=== PATIENT | male | born 1945 | race Caucasian/White ===

== ENCOUNTER 2016-07-25 19:35 | Observation (INO) | payer OTHER, BC ==
[~2016-07-25] VITALS: Ht 162.6 cm; Wt 64.3 kg
--- NOTE | ~2016-07-25 | EKG ---
[address] [facility] [place] [address] ELECTROCARDIOGRAM REPORT Name: BOBBI MOSELEY Room #: 207-P [facility].#: [id number] Admission: 07/25/16 Attend Phys: Ashu Pollard MD, Discharge: Date of : 49 Report #: [id number] THIS REPORT FOR: //name// [facility] ED Test Date: 2016-07-25 Test Time: 19:38:33 Pat Name: BOBBI MOSELEY Department: Room: [facility] Gender: M [employer] Assistant: ALEXANDRE : 1945 Requested By: Edwar Dominguez Order Number: [id number] MD: Qamar Moreno Measurements Intervals [place] Rate: 60 P: 40 VA: 172 QRS: 25 QRSD: 91 T: 51 QT: 387 QTc: 387 Interpretive Statements Sinus rhythm Atrial premature complex No previous ECG available for comparison Electronically Signed On 07-26-2016 8:21:53 BUDGET ACCOUNTANT by Qamar Moreno [email or web address] <ELECTRONICALLY SIGNED> By: Qamar Moreno MD 07/26/16 0821 37 37 Qamar Moreno MD /ELIZABETH
--- NOTE | ~2016-07-25 | DSS ---
[facility] [place] [address] SHORT STAY SUMMARY Name: BOBBI MOSELEY Room #: 207-P [facility] Jada Sofia#: [id number] Admission: 07/25/16 Attend Phys: Ashu Pollard MD, Discharge: 07/26/16 Date of : 49 Report #: [id number] THIS REPORT FOR: //name// CC: Ashu Pollard Aston [place] DISCHARGE DIAGNOSES: 1. Symptomatic premature ventricular and supraventricular complexes. 2. Coronary artery disease with prior bypass surgery with a left internal mammary to the left anterior descending, failed vein graft to the distal right coronary with stenting of the distal right coronary in July of 2015. 3. Hypertension. 4. Dyslipidemia. HISTORY OF PRESENT ILLNESS: For the complete details of the history of present illness, see dictated history and physical. Briefly, the patient is a 70-year-old gentleman with a history of coronary artery disease, dyslipidemia and hypertension. About a year ago, he presented with progressive angina and had a high risk stress study and underwent 2-vessel bypass surgery. During cardiac rehabilitation, he developed recurrent exertional angina and was found to have failure of the vein graft to the right coronary which was subsequently stented with a 2.5 x 30 mm Resolute medicated stent. He has been maintained on aspirin and Plavix and has had resolution of his angina following both surgery and this stenting procedure. Through the years, he has had off and on palpitations. These take his breath away and make him mildly lightheaded. Typically, the symptom will last for only an hour or two before resolving. For the past 2 days, this has been going on off and on, and he came to the Emergency Department where he was found to have symptomatic atrial premature complexes and symptomatic premature ventricular complexes. This isolated ectopy subsequently resolved. He denies chest heaviness, pressure or ischemic-type symptoms. He denies heart failure symptoms including orthopnea, paroxysmal nocturnal dyspnea or lower extremity edema. No history of palpitations, near syncope or syncope. ALLERGIES: No known drug allergies. MEDICATIONS: Atorvastatin 10 mg daily, Plavix 75 mg daily, metoprolol succinate 50 mg twice daily, aspirin 81 mg daily, multivitamin and Zantac 150 mg twice daily. PAST MEDICAL HISTORY AND PAST SURGICAL HISTORY: His past history and medical records have been reviewed and include a history of coronary artery disease, tonsillectomy, right inguinal hernia, hypertension, dyslipidemia and bypass surgery in 2016. SOCIAL HISTORY: He is . Nonsmoker and nondrinker. FAMILY HISTORY: Unremarkable for premature coronary artery disease. [address] [address] SHORT STAY SUMMARY Name: BOBBI MOSELEY Room #: 207-P [facility].#: [id number] Admission: 07/25/16 Attend Phys: Ashu Pollard MD, Discharge: 07/26/16 Date of : 49 Report #: [id number] REVIEW OF SYSTEMS: All systems negative except as that noted above. PHYSICAL EXAMINATION: GENERAL: He is a pleasant gentleman in no distress. He has appropriate mood and affect. VITAL SIGNS: Blood pressure is 111/70, heart rate of 52 and regular and respirations unlabored at 18. HEENT: There is neither xanthelasma, subcutaneous xanthomata, oral mucosal or digital cyanosis or kyphoscoliosis present. CHEST: Clear to auscultation and percussion. CARDIOVASCULAR: Regular rate and rhythm with normal S1 and S2. No murmurs, gallops or rubs. ABDOMEN: Soft and nontender. EXTREMITIES: Without cyanosis, clubbing or edema. Radial pulses are 2+. NEUROLOGIC: He is alert with a nonfocal exam. DIAGNOSTIC DATA: EKG sinus rhythm with occasional atrial premature complexes. Chest x-ray is normal. LABORATORY DATA: Sodium is 141, potassium 4.7 and creatinine 1.1. White count 7.0, hemoglobin 14, hematocrit 43 and platelet count 167. IMPRESSION: 1. Symptomatic atrial premature complexes and premature ventricular complexes. 2. Coronary artery disease. 3. Prior bypass. 4. Dyslipidemia. 5. Hypertension. RECOMMENDATIONS: 1. Continue to use the beta blockade. 2. Avoidance of caffeine and gjri-irf-[id number] stimulants. 3. No specific additional therapy is needed for this "benign" rhythm disturbance. From my standpoint, no additional cardiovascular testing is needed. I have reassured the patient of this. Follow up arrangements were made with Dr. Aston Arguello and myself. DISCHARGE DIET: Heart healthy. DISCHARGE MEDICATIONS: Reconciled. [address] [address] SHORT STAY SUMMARY Name: CESARIOISAUROROSABOBBI Sanchez Room #: 207-P SIMIN Sofia#: [id number] Admission: 07/25/16 Attend Phys: Ashu Pollard MD, Discharge: 07/26/16 Date of : 49 Report #: [id number] DISCHARGE CONDITION: Stable and improved. <ELECTRONICALLY SIGNED> By: Ashu Pollard MD, FAC 07/26/16 1738 [id number] Ashu Pollard MD, FACCindy /nt
[2016-07-25 19:35] VITALS: BP 145/78
[~2016-07-25 19:35] MED LIST: AMLODIPINE BESYL5 MG PO; APAP650 PO; ASPIR 8181 MG PO; CHOLEST OFF450 MG PO; CO Q-10100 MG PO; COL-RITE50 MG PO; GLUCOSAMINE HC500 MG PO; LIPITOR10 MG PO; OMEGA-31000 M1 PO; OMEPRAZOLE20 M1 PO; PLAVIX 75 MG TA75 M1 PO; PRAVACHOL40 MG PO; PRILOSEC2.5 MG PO; RANEXA500 MG PO; SAW PALMETTO C1 EACH PO; SENNA PO; TOPROL XL100 MG PO; UNICOMPLEX M TA1 TA1 PO; VITAMIN D1000 UNI1 PO; VITAMINC500 PO
[2016-07-25 20:22] LABS: ABSOLUTE NEUTROPHILS 4.1 thou/uL (1.4-8.2); BASOPHILS 0.4 % (0.0-2.0); EOSINOPHILS 1.6 % (0.0-3.0); HEMATOCRIT 43.2 % (42.0-52.0); HEMOGLOBIN 14.7 gm/dL (14.0-18.0); LYMPHOCYTES 30.5 % (24.0-44.0); MCH 31.5 pg (26.0-34.0); MCV 92.8 fL (80.0-100.0); MONOCYTES 9.1 % (1.0-8.0); PLATELET COUNT 167 thou/uL (150-400); POLYS 58.4 % (36.0-66.0); RBC 4.66 mil/uL (4.50-6.00); RDW 13.9 % (10.5-14.5)
[2016-07-25] MEDS ORDERED: ZANTAC 150MG T150 MG PO (20:22)
[2016-07-25 20:25] LABS: MANUAL DIFF NO
[2016-07-25 20:34] LABS: ANION GAP 6 mmol/L (7-16); BUN 20 mg/dL (7-18); CALCIUM 8.8 mg/dL (8.5-10.1); CHLORIDE 105 mmol/L (98-107); CO2 30 mmol/L (21-32); CREATININE 1.1 mg/dL (0.6-1.3); GLUCOSE 104 mg/dL (70-99); POTASSIUM 4.7 mmol/L (3.5-5.1); SODIUM 141 mmol/L (136-145)
[2016-07-25 20:43] LABS: ALBUMIN 3.7 g/dL (3.4-5.0); ALKALINE PHOSPHATASE 75 U/L (46-116); MAGNESIUM 2.2 mg/dL (1.8-2.4); SGOT 27 U/L (15-37); SGPT 39 U/L (30-65); TOTAL BILIRUBIN 0.5 mg/dL (<0.1-1.0); TOTAL PROTEIN 6.7 g/dL (6.4-8.2); TROPONIN-I < 0.04 ng/mL (<0.04-0.07)
[2016-07-26] VITALS: BP 155/80
[2016-07-26 04:05] VITALS: BP 111/70
[2016-07-26 08:40] VITALS: BP 124/79
[2016-07-26 09:54] VITALS: BP 124/79
== END 2016-07-26 10:38 | disposition home or self-care (01) ==
LOC: ER 19:35 → 2N 21:40 → EROBS 21:40 → 2N 23:15
PROVIDERS: Emergency Medicine
DX: I25.10 Atherosclerotic heart disease of native coronary artery without angina pectoris (principal); Z79.899 Other long term (current) drug therapy; Z79.82 Long term (current) use of aspirin; K21.9 Gastro-esophageal reflux disease without esophagitis; Z95.1 Presence of aortocoronary bypass graft; I10 Essential (primary) hypertension; E78.5 Hyperlipidemia, unspecified; Z98.890 Other specified postprocedural states

== ENCOUNTER → 2019-11-05 | Outpatient (CLI) | payer OTHER, BC ==
[~2019-11-05] MED LIST changes: +ZANTAC 150MG T150 MG PO
== END ==
LOC: SJCVC 13:10
DX: I49.9 Cardiac arrhythmia, unspecified (principal); I25.10 Atherosclerotic heart disease of native coronary artery without angina pectoris; I10 Essential (primary) hypertension; I65.23 Occlusion and stenosis of bilateral carotid arteries; E78.5 Hyperlipidemia, unspecified; Z95.1 Presence of aortocoronary bypass graft

== ENCOUNTER → 2020-05-06 | Outpatient (CLI) | payer OTHER, BC | LOC: SJCVCIMAG 08:14 | PROVIDERS: ATTEND Internal Medicine | DX: I65.23 Occlusion and stenosis of bilateral carotid arteries (principal); I49.8 Other specified cardiac arrhythmias; I25.10 Atherosclerotic heart disease of native coronary artery without angina pectoris; I10 Essential (primary) hypertension; E78.5 Hyperlipidemia, unspecified; Z95.1 Presence of aortocoronary bypass graft ==

== ENCOUNTER → 2020-11-04 | Outpatient (CLI) | payer OTHER, BC | LOC: SJCVC 14:34 | PROVIDERS: ATTEND Internal Medicine | DX: R00.1 Bradycardia, unspecified (principal); I25.10 Atherosclerotic heart disease of native coronary artery without angina pectoris; I10 Essential (primary) hypertension; I65.23 Occlusion and stenosis of bilateral carotid arteries; E78.5 Hyperlipidemia, unspecified; K21.9 Gastro-esophageal reflux disease without esophagitis; E78.00 Pure hypercholesterolemia, unspecified; Z79.899 Other long term (current) drug therapy; Z95.1 Presence of aortocoronary bypass graft ==

== ENCOUNTER → 2021-05-23 | Outpatient (CLI) | payer OTHER, BC | LOC: SJCVCIMAG 12:00 | PROVIDERS: ATTEND Internal Medicine | DX: I65.23 Occlusion and stenosis of bilateral carotid arteries (principal); R00.1 Bradycardia, unspecified; E78.5 Hyperlipidemia, unspecified; I25.10 Atherosclerotic heart disease of native coronary artery without angina pectoris; I10 Essential (primary) hypertension; K21.9 Gastro-esophageal reflux disease without esophagitis; Z95.5 Presence of coronary angioplasty implant and graft; Z98.890 Other specified postprocedural states; Z79.82 Long term (current) use of aspirin; Z79.899 Other long term (current) drug therapy ==